=== PATIENT | female | born 1940 | race Caucasian/White ===

== ENCOUNTER → 2020-03-31 | Outpatient (CLI) | payer OTHER ==
[~2020-03-31] MED LIST: CELEXA 20 MG TA20 MG PO; LEVEMIR FL100 UNIT/2; METFORMIN HCL500 M3 PO; TOPROL XL100 MG PO; ZETIA10 MG PO
--- NOTE | 2020-03-31 14:36 | CARDNUC ---
[place] [address] CARDIAC NUCLEAR IMAGING REPORT Name: GAURAV GOLDBERG Room: [facility]#: [id number] Admission: 03/31/20 Attend Phys: Sury Gong, Discharge: Date of : 42 Date of Service: 03/31/20 1436 Report #: [id number] THIS REPORT FOR: cc: Davion Zamora MD, Matthew W. MD Liston, Michael J. MD [facility] ~ APPROVED REPORT Imaging Protocol: Stress Tc-99m/Rest Tc-99m 1 day Study performed: 03/31/2020 09:15:00 Indication: hx A-FIB, GAIT INSTABILITY, S/P CYA CKD OA TIA, FIBROMYALGIA Patient Location: Out-Patient Stress Tech: Aline Barry Stress Nurse: Alma Tillman RN Ht: 5 ft 3 in Wt: 160 lbs BSA: 1.76 m2 HR: 59 bpm BP: 155/75 mmHg BMI: 28.33 Medical History Medical History: Carotid artery disease, HTN, Hyperlipidemia, DM INSULIN II HEMIPARESIS RIGHT SIDE Medications: ZETIA, METOPROLOL SUCCINATE Allergies: SULFA, ABX,METFORMIN, STATINS Cardiac Risk Factors: Hyperlipidemia, HTN, DM Previous Cardiac Procedures: Myocardial infarction Exercise History: Sedentary Meds Held (24 hrs): metoprolol Resting Data Rest SPECT myocardial perfusion imaging was performed in supine position 30 minutes following the intravenous injection of 10.3 mCi of Tc-99m Sestamibi. Time of rest injection: 09:40 The images were gated to evaluate regional wall motion and calculate left ventricular ejection fraction. Administration Route: IV Administration Site: Right AC Pharmacologic Stress Pharmacologic stress test was performed by injecting Regadenoson 0.4 mg IV push over 10-15 seconds immediately [place] [address] CARDIAC NUCLEAR IMAGING REPORT Name: GAURAV GOLDBERG Room: [facility]#: [id number] Admission: 03/31/20 Attend Phys: Sury Gong, Discharge: Date of : 42 Date of Service: 03/31/20 1436 Report #: [id number] injection of 32.9 mCi of Tc-99m Sestamibi. Time of stress injection: 11:30 Administration Route: IV Administration Site: Right AC Heart Rate at time of stress injection: 95 bpm. Gated Stress SPECT was performed 40 minutes after stress injection. The images were gated to evaluate regional wall motion and calculate left ventricular ejection fraction. Prone imaging was performed. Stress Test Details Stress Test: Pharmacologic stress testing performed using 0.4 mg of regadenoson per 5 mL given IV over 10 seconds. HR Max Heart Rate (APMHR): 141 bpm Resting HR: 59 bpm Target HR (85% APMHR): 119 bpm Max HR Achieved: 95 bpm % of APMHR: 67 Recovery HR: 89 bpm BP Resting BP: 155/75 mmHg Max BP: 156/43 mmHg Recovery BP: 178/8 mmHg ECG Resting ECG: Sinus Rhythm, RBBB Stress ECG: Sinus Rhythm, RBBB ST Change: None Arrhythmia: None Recovery ECG: Sinus Rhythm, RBBB Recovery ST Change: None Recovery Arrhythmia: None Clinical Reason for Termination: Completed protocol The patient tolerated Lexiscan infusion without significant cardiac symptoms. Nurse Comments pt unable to stand unassited Stress ECG Conclusion Baseline twelve-lead EKG shows sinus rhythm with right bundle branch block. There were no significant ST segment or T wave changes. EKGs obtained during and post Lexiscan infusion show sinus [place] [address] CARDIAC NUCLEAR IMAGING REPORT Name: GAURAV GOLDBERG Room: [facility]#: [id number] Admission: 03/31/20 Attend Phys: Sury Gong, Discharge: Date of : 42 Date of Service: 03/31/20 1436 Report #: [id number] segment or T wave changes when compared to baseline. There were no stress-induced arrhythmias. Study Quality Study: Good Artifact: Mild Apical thinning Study Data At rest, the left ventricular ejection fraction was 77%.. Post stress, the left ventricular ejection was 76%.. TID = 1.07. Perfusion Perfusion images obtained at rest and post Lexiscan stress in the supine position showed very mild photopenia of the apex that was more pronounced on resting down stress images. This defect resolves completely with post-rest prone imaging suggesting attenuation artifact. No other significant fixed or reversible defects are identified. Wall Motion Normal left ventricular wall motion. Nuclear Conclusion ECG Findings: negative for ischemia Clinical Findings: negative for ischemia Nuclear Findings: negative for ischemia Exercise Capacity: not assessed Left Ventricular Function: normal Risk Study: low Perfusion study showed no defect to suggest infarct or ischemia. Left ventricular systolic function is normal on gated studies. This is a low risk study. <Conclusion> Baseline twelve-lead EKG shows sinus rhythm with right bundle branch block. There were no significant ST segment or T wave changes. EKGs obtained during and post Lexiscan infusion show sinus rhythm with no significant ST segment or T wave changes when compared to baseline. There were no stress-induced arrhythmias. <ELECTRONICALLY SIGNED> By: Tai Oviedo MD, FACC 03/31/20 1436 1436 1436 Tai Oviedo MD, FACC /INF
== END ==
LOC: M.NUC 02-23 10:58
PROVIDERS: ATTEND Internal Medicine
DX: I25.10 Atherosclerotic heart disease of native coronary artery without angina pectoris (principal); I25.2 Old myocardial infarction; Z86.79 Personal history of other diseases of the circulatory system